=== PATIENT | male | born 1980 | race Caucasian/White ===

== ENCOUNTER 2022-08-26 09:43 | Emergency (ER) | payer OTHER ==
[2022-08-26] MEDS ORDERED: SODIUM CHLORIDE 0.9% 1000 ML INFUS.BAG IV ONE (10:05)
[2022-08-26 10:08] VITALS: RESP 16; BMI 26.5
[2022-08-26 10:31] LABS: HEMATOCRIT 36.4 % (35.4-49); HEMOGLOBIN 12.8 G/dL (11.7-16.9); MCH 33.2 pg (25.7-33.7); MEAN CELL VOLUME 94.8 fl (80-96); PLATELET COUNT 250.7 10^3/uL (134-434); RBC 3.84 10^6/uL (4.00-5.60); RDW 13.2 % (11.9-15.9); WHITE BLOOD COUNT 8.4 10^3/uL (4.0-10.8)
[2022-08-26 10:32] LABS: ALBUMIN 4.2 g/dl (3.4-5.0); BILIRUBIN,TOTAL 1.5 mg/dl (0.2-1); CALCIUM 8.8 mg/dl (8.5-10); CREATININE 0.8 mg/dl (0.55-1.3); TOT PROT 6.9 g/dl (6.4-8.2)
[2022-08-26 10:34] LABS: PLATELET ESTIMATE ADEQUATE
[2022-08-26 13:20] VITALS: BP 126/75; PULSE 80; TEMP 98.9
== END 2022-08-26 14:01 | disposition home or self-care (01) ==
LOC: FER 09:43
DX: R19.02 Left upper quadrant abdominal swelling, mass and lump (principal)
CPT/HCPCS: 36415; 74177-TC; 80053; 83690; 85027; 99285-25; Q9967

== ENCOUNTER 2022-09-26 19:53 | Emergency (ER) | payer OTHER ==
[2022-09-26 20:06] VITALS: BP 140/64; PULSE 102; RESP 20; TEMP 98.1; BMI 26.5
== END 2022-09-26 20:50 | disposition home or self-care (01) ==
LOC: FER 19:53
DX: R10.13 Epigastric pain (principal)
CPT/HCPCS: 99283-25

== ENCOUNTER 2022-10-13 21:52 | Emergency (ER) | payer OTHER ==
[2022-10-13 22:03] VITALS: BP 118/75; PULSE 90; RESP 19; TEMP 98.9; BMI 22.6
[2022-10-13] MEDS ORDERED: CEPHALEXIN MONOHYDRATE 500 MG CAPSULE (UD) PO ONE (22:36)
[2022-10-13] MEDS ORDERED: CEPHALEXIN MONOHYDRATE 500 MG CAPSULE (UD) ONE (22:38)
== END 2022-10-13 22:52 | disposition home or self-care (01) ==
LOC: FER 21:52
DX: L03.113 Cellulitis of right upper limb (principal)
CPT/HCPCS: 87070; 87186; 87205; 99283-25